=== PATIENT | female | born 1985 | race Caucasian/White ===

== ENCOUNTER → 2020-09-06 | Outpatient (CLI) | payer BC ==
--- NOTE | 2020-09-07 09:01 | MM ---
Reason for exam: screening (asymptomatic). Baseline mammogram. History: Family history of breast cancer in mother and breast cancer in grandmother. Taking hormonal contraceptives for 10 years beginning at age 25. Physical Findings: Nurse did not find any significant physical abnormalities on exam. MG Screening Mammo w CAD Bilateral CC and MLO view(s) were taken. XCCL view(s) were taken of the left breast. Finding: There is an intermediate concern, suspicious 7-8 mm equal density (isodense), oval mass in the 9 o'clock position of the right breast. Asymmetric breast tissue left subareolar. These results were verbally communicated with the patient and result sheet given to the patient on 09/06/20. ASSESSMENT: Incomplete: need additional imaging evaluation, BI-RAD 0 RECOMMENDATION: Special view mammogram of both breasts. Ultrasound of the right breast.
--- NOTE | 2020-09-07 09:03 | MM ---
Reason for exam: additional evaluation requested from abnormal screening. History: Family history of breast cancer in mother and breast cancer in grandmother. Taking hormonal contraceptives for 10 years beginning at age 25. Physical Findings: Breast exam preformed at baseline screening. MG Work Up Mamm w CAD BILAT CC with magnification and ML with magnification view(s) were taken of the right breast. Spot compression CC and spot compression ML view(s) were taken of the left breast. Finding: There are round, diffuse/scattered calcifications in the upper outer quadrant of the right breast consistent with probable adenosis. There is no additional discrete abnormality subareolar region left breast. These results were verbally communicated with the patient and result sheet given to the patient on 09/06/20. ASSESSMENT: Probably benign, BI-RAD 3 RECOMMENDATION: Follow-up diagnostic mammogram of both breasts in 6 months.
--- NOTE | 2020-09-07 09:07 | USB ---
Reason for exam: additional evaluation requested from abnormal screening. History: Family history of breast cancer in mother and breast cancer in grandmother. Taking hormonal contraceptives for 10 years beginning at age 25. US Breast Workup Limited RT Right limited breast ultrasound including focal area of concern, retroareolar and axilla demonstrates a 2.5 x 1.8 x 1.1cm oval, cluster, cystic lesion at 9 o'clock, a 1.1 x 1.3 x 0.5cm oval, cluster, cystic lesion at 9 o'clock and a 0.7 x 1.1 x 0.8cm irregular, lobular, solid, hypoechoic lesion at 11 o'clock for which a biopsy is recommended. These results were verbally communicated with the patient and result sheet given to the patient on 09/06/20. ASSESSMENT: Suspicious, BI-RAD 4 RECOMMENDATION: Ultrasound core biopsy of the right breast. (11 o'clock) Patient did not want to schedule any appointments at this time. Patient will call Dr. Narayan's office to schedule. Called Sylvain's office with mammographic findings. PRELIMINARY REPORT CALLED AND FAXED TO DR. NARAYAN ON 09/07/20.
== END | disposition home or self-care (01) ==
LOC: RADMAMWWP 13:36
PROVIDERS: ATTEND Obstetrics & Gynecology
DX: Z12.31 Encounter for screening mammogram for malignant neoplasm of breast (principal); R92.8 Other abnormal and inconclusive findings on diagnostic imaging of breast; Z80.3 Family history of malignant neoplasm of breast
CPT/HCPCS: 77066; 77067

== ENCOUNTER → 2020-09-20 | Day surgery (SDC) | payer BC ==
[2020-09-20 10:08] VITALS: RESP 18; TEMP 98.5
[2020-09-20 10:37] VITALS: BP 161/91; PULSE 93
--- NOTE | 2020-09-20 11:10 | USB ---
Discontinued ultrasound guided core biopsy of the right breast HISTORY: Density The density at the right 11:00 position was imaged by the technologist as well as the undersigned. No persistent mass or lesion is identified. Abnormality on prior was likely to be secondary to shadowin g from adjacent ligament. This was discussed with the patient. Precautionary six-month follow-up is a dvised. IMPRESSION: Probably benign BI-RADS 3 Recommendation: 6 month follow-up right-sided breast ultrasound
== END ==
LOC: RADUSWWP 09:41
PROVIDERS: ATTEND Surgery
DX: R92.2 Inconclusive mammogram (principal); Z53.09 Procedure and treatment not carried out because of other contraindication

== ENCOUNTER → 2021-03-27 | Outpatient (CLI) | payer BC ==
--- NOTE | 2021-03-27 09:16 | USB ---
EXAMINATION TYPE: US breast limited RT DATE OF EXAM: 03/27/2021 COMPARISON: 09/06/2020, 09/20/2020 CLINICAL HISTORY: R92.8 ABN MAMMO. Findings: The right breast was scanned with ultrasound from 9-12 o'clock and in the retroareolar region and axi lla. Lobulated large septated cyst is redemonstrated and likely accounts for the asymmetry seen on mammogr am at 9:00. In the right breast at 11:00, there is a 1.3 x 0.6 x 0.8 cm irregular hypoechoic mass with indistinct margins which appears relatively similar to the prior ultrasound dated September 06, 2020 and is suspi cious. Ultrasound-guided biopsy is recommended. IMPRESSION: Ultrasound-guided biopsy is recommended for the irregular, hypoechoic mass in the right breast at 11: 00 measuring up to 1.3 cm. BI-RADS 4, suspicious.
== END | disposition home or self-care (01) ==
LOC: RADUSWWP 08:25
PROVIDERS: ATTEND Surgery
DX: N63.11 Unspecified lump in the right breast, upper outer quadrant (principal)

== ENCOUNTER → 2021-04-11 | Day surgery (SDC) | payer BC ==
[2021-04-11 09:52] VITALS: RESP 16
[2021-04-11 11:17] VITALS: BP 135/88; PULSE 89; TEMP 98.6
--- NOTE | 2021-04-11 11:21 | USB ---
EXAMINATION TYPE: US biopsy breast VAD RT, MG diagnostic mammo RT wo CAD DATE OF EXAM: 04/11/2021 CLINICAL HISTORY: N63 BREAST LUMP/MASS. TECHNIQUE: Ultrasound guided core biopsy of right breast. COMPARISON: 09/20/2020 FINDINGS: The procedure of ultrasound guided core biopsy was explained to the patient. Benefits, alternatives, and risks were discussed. An informed consent was then obtained. The patient was placed in supine positioning for imaging and for the procedure. The overlying skin was prepped and draped in usual sterile fashion. Lidocaine buffered with bicarbonate was used as anesthetic into the skin and subcutaneous tissue up to area of concern in the right breast. Skin deirdre was made with surgical scalpel. Under ultrasound guidance, a 12-gauge vacuum assisted biopsy gun device was used to obtain 3 core samples. Following this, a biopsy clip was placed in lesion. The patient tolerated the procedure well without any immediate complication. The patient was kept in the radiology department for short stay after the procedure and then discharged home in stable condition. Post biopsy mammogram shows clip at 11:00 6.5 cm from the nipple. This is in appropriate position. IMPRESSION: Successful, uncomplicated ultrasound guided core biopsy of area of concern in the right breast. Full pathology results to follow. Pathology Results: Benign RIGHT BREAST, ELEVEN O'CLOCK, ULTRASOUND GUIDED CORE BIOPSY: Fibroadenoma/fibroadenomatoid hyperplasia and background fibrocystic changes with rare microcalcifications. Recommendation Follow up mammogram of the right breast in 6 months. SANJAY
== END ==
LOC: RADUSWWP 09:34
PROVIDERS: ATTEND Surgery
DX: D24.1 Benign neoplasm of right breast (principal); N60.11 Diffuse cystic mastopathy of right breast
CPT/HCPCS: 88305; 77065; 19083; A4648; J2001

== ENCOUNTER → 2021-10-23 | Outpatient (CLI) | payer BC ==
--- NOTE | 2021-10-24 10:11 | MM ---
Reason for exam: follow-up at short interval from prior study. Last mammogram was performed 6 months ago. History: Family history of breast cancer in mother and breast cancer in grandmother. Benign US biopsy breast VAD RT of the right breast, April 11, 2021. US discontinued breast bx RT of the right breast, September 20, 2020. Taking hormonal contraceptives for 10 years beginning at age 25. Physical Findings: Nurse did not find any significant physical abnormalities on exam. MG Diagnostic Mammo w CAD CHRIS Bilateral CC and MLO view(s) were taken. Prior study comparison: April 11, 2021, right breast MG diagnostic mammo RT wo CAD. September 06, 2020, bilateral MG work up mamm w CAD BILAT. The breast tissue is heterogeneously dense. This may lower the sensitivity of mammography. There are benign appearing round calcifications bilaterally. Previous mammotome biopsy in the right breast. There is no discrete abnormality. Prominent benign bilateral axillary lymph nodes redemonstrated. These results were verbally communicated with the patient and result sheet given to the patient on 10/23/21. ASSESSMENT: Benign, BI-RAD 2 RECOMMENDATION: Routine screening mammogram of both breasts in 1 year.
--- NOTE | 2021-10-24 10:15 | USB ---
Reason for exam: follow-up at short interval from prior study. History: Family history of breast cancer in mother and breast cancer in grandmother. Benign US biopsy breast VAD RT of the right breast, April 11, 2021. US discontinued breast bx RT of the right breast, September 20, 2020. Taking hormonal contraceptives for 10 years beginning at age 25. US Breast Limited RT Right limited breast ultrasound including focal area of concern, retroareolar and axilla demonstrates a 3.4 x 1.2 x 2.0cm lobular, cystic lesion at 9 o'clock, benign simple cyst stable since 03/27/21, a 1.3 x 0.5 x 1.1cm oval, solid, hypoechoic lesion at 11 o'clock, previously biopsied, fibroadenoma and a 1.2 x 0.6 x 0.9cm lobular, solid, hypoechoic lesion at 12 o'clcok, not seen on 03/27/21. These results were verbally communicated with the patient and result sheet given to the patient on 10/23/21. ASSESSMENT: Suspicious, BI-RAD 4 RECOMMENDATION: Ultrasound core biopsy of the right breast. Called office with mammographic findings and has scheduled an appointment for the patient for 12/13/21 at 11:[address] Vang. Biopsy scheduled for 11/14/21 at 9:30. PRELIMINARY REPORT CALLED AND FAXED TO DR. VANG ON 10/24/21.
== END | disposition home or self-care (01) ==
LOC: RADMAMWWP 12:55
PROVIDERS: ATTEND Surgery
DX: R92.8 Other abnormal and inconclusive findings on diagnostic imaging of breast (principal); Z80.3 Family history of malignant neoplasm of breast
CPT/HCPCS: 77066

== ENCOUNTER → 2021-11-14 | Day surgery (SDC) | payer BC ==
[2021-11-14 11:03] VITALS: BP 140/77; PULSE 78; RESP 16; TEMP 98.1
--- NOTE | 2021-11-14 11:48 | USB ---
EXAMINATION TYPE: US biopsy breast VAD RT, MG diagnostic mammo RT wo CAD DATE OF EXAM: 11/14/2021 CLINICAL HISTORY: R92.8 ABN MAMMO. TECHNIQUE: Ultrasound guided core biopsy of right 12:00 breast. COMPARISON: NONE FINDINGS: The procedure of ultrasound guided core biopsy was explained to the patient. Benefits, alternatives, and risks were discussed. An informed consent was then obtained. The patient was placed in supine positioning for imaging and for the procedure. The overlying skin was prepped and draped in usual sterile fashion. Lidocaine buffered with bicarbonate was used as anesthetic into the skin and subcutaneous tissue up to area of concern in the right 12:00 breast. Under ultrasound guidance, a 12-gauge vacuum assisted biopsy gun device was used to obtain 4 core samples. Following this, a biopsy clip was left in lesion. Postprocedural mammogram demonstrates appropriate clip placement. The patient tolerated the procedure well without any immediate complication. The patient was kept in the radiology department for short stay after the procedure and then discharged home in stable condition. IMPRESSION: Successful, uncomplicated ultrasound guided core biopsy of area of concern in the right 12:00 breast, full pathology results to follow. Pathology Results: Benign RIGHT BREAST, 12:00, ULTRASOUND GUIDED CORE BIOPSY: Fibroadenoma and fibrocystic changes. Recommendation Follow up mammogram of the right breast in 6 months. SANJAY
== END | disposition home or self-care (01) ==
LOC: RADUSWWP 09:28
PROVIDERS: ATTEND Surgery
DX: D24.1 Benign neoplasm of right breast (principal); N60.11 Diffuse cystic mastopathy of right breast
CPT/HCPCS: 88305; 77065; 19083; A4648; J2001

== ENCOUNTER 2022-09-05 06:08 | Inpatient (IN) | payer BC ==
--- NOTE | 2022-09-04 18:37 | P.HPOB ---
History of Present Illness H&P Date: 09/04/22 Chief Complaint: Induction of labor This is a 37 y.o. female, 1, para 0, with an estimated date of confinement of 09/12/2022, estimated gestational age of 39-0/7 weeks, who presents for induction of labor due to chronic hypertension. She has been getting some more labile blood pressures recently with some leg swelling. She denies headaches or blurred vision. labs: Hepatitis B surface antigen-neg RPR-NR Rubella-immune Blood type-A+ Antibody screen-neg HIV-NR Hemoglobin-12.2 Toxoplasma-neg Glucose-84 GC/Chlamydia/Trich-neg Quad-neg [id number] 1 hr. GTT-122 GBS-neg OB Hx: Life Skills Specialist Hx: No hx STDs Social Hx: . Works at [employer] Review of Systems Constitutional: Denies chills, Denies fever Eyes: denies blurred vision, denies pain Ears, nose, mouth and throat: Denies headache, Denies sore throat Cardiovascular: Denies chest pain, Denies shortness of breath Respiratory: Denies cough Gastrointestinal: Reports abdominal pain (irregular contractions) Genitourinary: Reports pelvic pain, Reports Musculoskeletal: Reports low back pain Musculoskeletal: bilateral: foot swelling Integumentary: Denies pruritus, Denies rash Neurological: Denies numbness, Denies weakness Psychiatric: Reports difficulty concentrating, Denies anxiety, Denies depression Past Medical History Past Medical History: No Reported History History of Any Multi-Drug Resistant Organisms: None Reported Past Surgical History: Breast Surgery (Breast biopsy) Additional Past Surgical History / Comment(s): Mole from neck removed as Past Anesthesia/Blood Transfusion Reactions: No Reported Reaction Past Psychological History: No Psychological Hx Reported, ADD/ADHD Smoking Status: Never smoker Past Alcohol Use History: None Reported, Rare Past Drug Use History: None Reported - Past Family History Mother Family Medical History: Hypertension Medications and Allergies Home Medications Medication Instructions Recorded Confirmed Type Multivit with Calcium,Iron,Min 1 each PO DAILY 09/20/20 11/14/21 History [Women's Multivitamin] Allergies Allergy/AdvReac Type Severity Reaction Status Date / Time No Known Allergies Allergy Verified 11/14/21 09:49 Exam Osteopathic Statement: *. No significant issues noted on an osteopathic structural exam other than those noted in the History and Physical/Consult. HEENT: within normal limits Heart: regular rate and rhythm Lungs: clear to auscultation bilaterally Abdomen: gravid, non-tender Cervix: 1 cm/70%/-2 heart tones: 140 by doppler Extremities: neg. Eder's, tr. edema bilaterally Assessment and Plan (1) 39 weeks gestation of Status: Acute Code(s): Z3A.39 - 39 WEEKS GESTATION OF SNOMED Code(s): 16316558 (2) Chronic hypertension affecting Status: Acute Code(s): O10.919 - UNSP PRE-EXISTING HTN COMP , UNSP TRIMESTER SNOMED Code(s): 62095222 Plan: Proceed with oxytocin induction of labor. Expectant management. Epidural anesthesia if desired.
[2022-09-05] MEDS ORDERED: LIDOCAINE 1% (10MG/ML) FOR IV START INTRADERMA PRN (06:24)
[2022-09-05] MEDS ORDERED: CARBOPROST TROMETHAMINE 250 MCG/ML 1 ML AMP IM PRN (06:24)
[2022-09-05] MEDS ORDERED: TERBUTALINE 1 MG/ML VIAL SQ PRN (06:24)
[2022-09-05] MEDS ORDERED: OXYTOCIN 30 UNITS/500 ML NS 30 UNIT in SALINE 1 500ML.BAG IV SCH (06:24)
[2022-09-05] MEDS ORDERED: miSOPROStoL 200 MCG TAB PO PRN (06:24)
[2022-09-05] MEDS ORDERED: OXYTOCIN 10 UNIT/ML 1 ML VIAL IM PRN (06:24)
[2022-09-05] MEDS ORDERED: LIDOCAINE 0.5% (PF) 5 MG/ML (50 ML SDV) SQ PRN (06:24)
[2022-09-05] MEDS ORDERED: TRANEXAMIC ACID IN NACL,ISO-OS 1,000 MG in EMPTY BAG 1 BAG IV PRN (06:24)
[2022-09-05] MEDS: LACTATED RINGERS 1,000 ML IV SCH ×2 (07:14→14:35)
[2022-09-05 07:43] LABS: Basophils % (A) 0 %; Eosinophils # (A) 0.2 k/uL (0-0.7); Eosinophils % (A) 2 %; HCT 31.5 % (34.0-46.0); HGB 10.7 gm/dL (11.4-16.0); Hypochromasia Slight; Lymphocytes # (A) 1.9 k/uL (1.0-4.8); Lymphocytes % (A) 21 %; MCH 28.4 pg (25.0-35.0); MCHC 33.8 g/dL (31.0-37.0); MCV 84.1 fL (80.0-100.0); Mean Platelet Volume 9.6; Monocytes # (A) 0.5 k/uL (0-1.0); Monocytes % (A) 5 %; Neutrophils # (A) 6.3 k/uL (1.3-7.7); Neutrophils % (A) 70 %; Platelet Count 187 k/uL (150-450); RBC 3.75 m/uL (3.80-5.40); RDW 13.6 % (11.5-15.5)
[2022-09-05] MEDS: LABETALOL 200 MG TAB PO SCH ×2 (10:17→21:14)
[2022-09-05 16:35] LABS: Glucose,Urine (UA) Negative (Negative); Ketones,Urine 2+ (Negative); Protein,Urine Trace (Negative)
[2022-09-05] MEDS ORDERED: SODIUM CHLORIDE 0.9% 100 ML BAG ONE (19:32)
[2022-09-05] MEDS ORDERED: ROPIVACAINE 5 MG/ML 20 ML AMPULE ONE (19:32)
[2022-09-05] MEDS ORDERED: fentaNYL (PF) 50 MCG/ML 5 ML AMP ONE (19:32)
[2022-09-06] MEDS ORDERED: AMPICILLIN 2,000 MG in SODIUM CHLORIDE 0.9% 100 ML IVPB ONE (01:00)
[2022-09-06] MEDS: LACTATED RINGERS 1,000 ML IV SCH ×3 (01:00→20:53)
[2022-09-06] MEDS ORDERED: LABETALOL 200 MG TAB PO STA (03:17)
[2022-09-06] MEDS ORDERED: CITRIC ACID-SODIUM CITRATE 15 ML CUP PO ONE (04:58)
[2022-09-06] MEDS ORDERED: AMPICILLIN 1,000 MG in SODIUM CHLORIDE 0.9% 50 ML IVPB SCH (05:00)
[2022-09-06] MEDS ORDERED: OXYTOCIN 30 UNITS/500 ML NS BAG IV ONE (05:20)
[2022-09-06] MEDS ORDERED: KETOROLAC 15 MG/ML 1 ML VIAL ONE (05:20)
[2022-09-06] MEDS ORDERED: ONDANSETRON 4 MG/2 ML VIAL ONE (05:20)
[2022-09-06] MEDS ORDERED: MORPHINE SULFATE (PF) 0.3 MG/0.3 ML SYR ONE (05:20)
[2022-09-06] MEDS ORDERED: NALBUPHINE 10 MG/ML (1 ML AMP) ONE (05:20)
--- NOTE | 2022-09-06 06:09 | P.OP ---
Date of Procedure: 09/06/22 Preoperative Diagnosis: 1. Intrauterine at 39 and one sevenths weeks. 2. Failure to descend. 3. Chronic hypertension. Postoperative Diagnosis: Same Procedure(s) Performed: Primary low transverse section Anesthesia: epidural (Duramorph) Surgeon: Marcie Narayan Drop Board Man #1: Diony Timmons Estimated Blood Loss (ml): 550 Pathology: other (Placenta) Condition: stable Disposition: floor Indications for Procedure: This is a 37-year-old female 1 para 0 at 39 and one sevenths weeks who presented for induction of labor. She underwent oxytocin induction of labor due to chronic hypertension and progressed over about a 24 hour period of time to complete dilation. She did receive epidural anesthesia. Once reaching complete she pushed for approximately an hour and a half almost no descent of the baby's head and increasing caput. At this point the decision was made to proceed with delivery. Risks benefits and alternatives were discussed in detail with the patient and her family and the decision was mutual to proceed with delivery. I have discussed the risks, benefits, and alternative therapies for the above- mentioned procedure and for both sedation/anesthesia as well as necessary blood products administration, if indicated, as they pertain to this patient. The patient has indicated her understanding and acceptance of the risks and procedures discussed. Operative Findings: A viable female is noted in the vertex presentation with occiput anterior lie and scores of 3 at 1 minute 5 at 5 minutes and 9 at 10 minutes and infant weight of 8 lbs. 0 oz. Normal uterus tubes and ovaries are noted. She did have a small anterior fibroid noted. Description of Procedure: The patient is taken to the operating room where she is placed in the dorsal supine position with leftward tilt after epidural anesthesia is bolused. She is prepped and draped in the normal sterile fashion. Skin was tested and found to be adequately anesthetized. A Pfannenstiel skin incision was made with a scalpel. A second knife was used to carry the incision down to the underlying layer of fascia. The fascia was nicked in the midline with a scalpel and then extended laterally bilaterally with Varela scissors. The anterior lip of the fascia was grasped with 2 Heather clamps and then dissected off the underlying rectus muscle in the midline with Varela scissors. The inferior aspect of the fascial incision was grasped with 2 Heather clamps and dissected off the underlying rectus muscle and the midline with Varela scissors. Next the peritoneum layer was tented up with 2 hemostats and then entered sharply with the scalpel. The incision is extended superiorly and inferiorly with Metzenbaum scissors. Next a DeLee retractor is placed. The vesicouterine peritoneum is entered sharply with Metzenbaum scissors and extended laterally bilaterally with Metzenbaum scissors and then the bladder flap is pushed inferiorly. The lower uterine segment is incised in transverse fashion with the scalpel and then bluntly entered with a hemostat. Clear fluid is noted. The incision was then extended laterally bilaterally with 2 fingers. Next the 's head is noted in the occiput anterior lie and is delivered through the incision. Nose and mouth are bulb suctioned. The remainder of the is easily delivered and placed on mother's abdomen. Cord is clamped and cut. Infant is taken to warmer by nursing staff. Uterine fundus is gently massaged and placenta is delivered manually. Uterus is exteriorized and cleared of all clots and debris. Uterine incision is closed with 0 Vicryl suture in a running locked fashion. A second layer of 0 Vicryl suture is used in a running fashion for hemostasis. Once adequate hemostasis as assured, the vesicouterine peritoneum is reapproximated with 2-0 Vicryl suture in a running fashion. Posterior cul-de-sac is suctioned of all clots and debris. Uterus is returned to the abdomen. Incision is noted to be hemostatic. Peritoneal layer is closed with 0 Vicryl suture in a running fashion. Muscle layer is reapproximated with 0 Vicryl suture in interrupted fashion. Fascia layer is then closed with 0 PDS suture with 2 sutures meeting in the midline and the knots buried in either side and in the midline. The subcutaneous tissue was then closed with 2-0 Vicryl suture. Skin layer was then closed with gracie. All sponge and needle counts are correct. The patient is taken to recovery room in stable condition.
[2022-09-06] MEDS ORDERED: METOCLOPRAMIDE 5 MG/ML 2 ML VIAL IVP PRN (06:24)
[2022-09-06] MEDS ORDERED: LANOLIN CREAM 5 GM TUBE TOPICAL PRN (06:24)
[2022-09-06] MEDS ORDERED: diphenhydrAMINE 25 MG CAP PO PRN (06:24)
[2022-09-06] MEDS ORDERED: SIMETHICONE 80 MG CHEWABLE PO PRN (06:24)
[2022-09-06] MEDS ORDERED: ONDANSETRON 4 MG/2 ML VIAL IVP PRN (06:24)
[2022-09-06] MEDS ORDERED: HYDROmorphone PCA 10 MG/50 ML BAG IV PRN (06:24)
[2022-09-06] MEDS ORDERED: NALOXONE 0.4 MG/ML 1 ML VIAL IV PRN (06:24)
[2022-09-06] MEDS ORDERED: ZOLPIDEM 5 MG TAB PO PRN (06:24)
[2022-09-06] MEDS ORDERED: diphenhydrAMINE 50 MG/ML 1 ML VIAL IVP PRN ×2 (06:24)
[2022-09-06] MEDS ORDERED: diphenhydrAMINE 50 MG CAP PO PRN (06:24)
[2022-09-06] MEDS: ACETAMINOPHEN TAB 500 MG TAB PO SCH ×2 (09:47→17:01)
[2022-09-06] MEDS: SENNOSIDES-DOCUSATE SODIUM 1 EACH TAB PO SCH ×2 (09:47→20:21)
[2022-09-06] MEDS: LABETALOL 200 MG TAB PO SCH ×2 (10:36→21:01)
[2022-09-06] MEDS: KETOROLAC 15 MG/ML 1 ML VIAL IVP SCH ×2 (11:45→20:21)
[2022-09-06] MEDS: ACETAMINOPHEN IV (For NPO) 1,000 MG in EMPTY BAG 1 BAG IVPB SCH (19:44)
[2022-09-06] MEDS: IBUPROFEN 600 MG TAB PO SCH (20:51)
[2022-09-07] MEDS: ACETAMINOPHEN TAB 500 MG TAB PO SCH ×5 (00:11→21:00)
[2022-09-07] MEDS: LACTATED RINGERS 1,000 ML IV SCH (00:31)
[2022-09-07] MEDS: KETOROLAC 15 MG/ML 1 ML VIAL IVP SCH ×3 (04:13→23:06)
[2022-09-07] MEDS: IBUPROFEN 600 MG TAB PO SCH ×4 (04:19→16:58)
[2022-09-07 06:48] LABS: Basophils % (A) 0 %; Eosinophils # (A) 0.2 k/uL (0-0.7); Eosinophils % (A) 2 %; HCT 29.6 % (34.0-46.0); HGB 9.5 gm/dL (11.4-16.0); Hypochromasia Slight; Lymphocytes # (A) 1.9 k/uL (1.0-4.8); Lymphocytes % (A) 17 %; MCH 27.2 pg (25.0-35.0); MCV 85.1 fL (80.0-100.0); Mean Platelet Volume 9.5; Monocytes # (A) 0.7 k/uL (0-1.0); Monocytes % (A) 7 %; Neutrophils # (A) 7.9 k/uL (1.3-7.7); Neutrophils % (A) 73 %; Platelet Count 167 k/uL (150-450); RBC 3.48 m/uL (3.80-5.40); RDW 13.6 % (11.5-15.5); WBC 10.9 k/uL (3.8-10.6)
--- NOTE | 2022-09-07 07:09 | P.PNOBGPC ---
Subjective - Subjective Patient reports: Reports appetite normal, Reports voiding normally, Reports pain well controlled, Reports ambulating normally : doing well Objective - Vital Signs Latest vital signs: Vital Signs Temp Pulse Resp BP Pulse Ox 09/07/22 04:00 97.7 F 80 14 144/92 96 09/07/22 00:00 97.8 F 72 15 134/85 97 09/06/22 20:00 98.7 F 76 16 127/78 96 09/06/22 16:00 97.9 F 81 16 135/85 97 09/06/22 12:00 98.0 F 78 16 148/82 97 09/06/22 08:05 78 16 162/82 98 09/06/22 07:35 88 16 155/70 Intake and Output 09/06/22 09/07/22 09/07/22 22:59 06:59 14:59 Output Total 100 Balance -100 Output: Urine 100 Other: # Voids 1 1 - Exam Lungs: bilateral: normal Chest: Normal S1, Normal S2 Extremities: Present: normal Abdomen: Present: normal appearance, soft. Absent: distention, tenderness Incision: Present: normal, dry, intact Uterus: Present: normal, firm - Labs Labs: Abnormal Lab Results - Last 24 Hours (Table) 09/07/22 Range/Units 06:26 WBC 10.9 H (3.8-10.6) k/uL RBC 3.48 L (3.80-5.40) m/uL Hgb 9.5 L (11.4-16.0) gm/dL Hct 29.6 L (34.0-46.0) % Neutrophils # 7.9 H (1.3-7.7) k/uL Assessment and Plan Assessment: Post operative day #1. Patient is resting without complaints. Vital signs are stable she's afebrile. Blood pressures remain around 130s over 80s to 140s over 90s on oral antihypertensives. Uterus is firm nontender and her incision is intact and dry. Patient is urinating and ambulating without difficulty. Patient states that she is also tolerating regular diet. CBC today does show hemoglobin to be 9.5 which is an appropriate drop from her preoperative hemoglobin however I am going start her on some oral iron therapy. Baby is still in special care but appears to be weaning off of high flow. Plan today is to allow the patient to shower, encourage ambulation, instituting oral iron therapy, and continue routine postoperative care (1) delivery delivered Current Visit: Yes Status: Acute Code(s): O82 - ENCOUNTER FOR DELIVERY WITHOUT INDICATION SNOMED Code(s): 030380504
[2022-09-07] MEDS: FERROUS SULFATE 325 MG TAB PO SCH ×2 (07:46→16:58)
[2022-09-07] MEDS: SENNOSIDES-DOCUSATE SODIUM 1 EACH TAB PO SCH ×2 (07:46→20:37)
[2022-09-07] MEDS: LABETALOL 200 MG TAB PO SCH ×2 (09:37→21:00)
--- NOTE | 2022-09-07 14:56 | P.PN ---
Progress Note - Text Progress Note Date: 09/07/22 Patient doing well. Pain controlled. Denies headache. Ambulating w/o weakness or paresthesia. Mild pruritis. Back - spinal site c/d A/P POD#1 s/p w/ spinal duramorph - doing well
[2022-09-08] MEDS: IBUPROFEN 600 MG TAB PO SCH ×4 (04:20→21:04)
[2022-09-08] MEDS: FERROUS SULFATE 325 MG TAB PO SCH ×2 (07:32→16:57)
--- NOTE | 2022-09-08 07:33 | P.PNOBGPC ---
Subjective - Subjective Patient reports: Reports appetite normal, Reports voiding normally, Reports pain well controlled, Reports ambulating normally : doing well Objective - Vital Signs Latest vital signs: Vital Signs Temp Pulse Resp BP Pulse Ox 09/08/22 07:25 97.8 F 87 20 151/98 99 09/08/22 04:00 98.1 F 78 16 159/98 97 09/07/22 23:49 98.1 F 75 19 131/82 97 09/07/22 20:00 98.1 F 85 19 147/88 99 09/07/22 16:00 97.9 F 83 16 118/72 98 09/07/22 12:00 98.0 F 68 18 114/64 98 09/07/22 07:50 98.1 F 83 18 146/86 99 Intake and Output 09/07/22 09/08/22 09/08/22 22:59 06:59 14:59 Intake Total 480 Balance 480 Intake: Oral 480 Other: Voiding Method Indwelling Catheter # Voids 3 1 2 - Exam Lungs: bilateral: normal Chest: Normal S1, Normal S2 Extremities: Present: normal Abdomen: Present: normal appearance, soft. Absent: distention, tenderness Incision: Present: normal, dry, intact Uterus: Present: normal, firm Assessment and Plan Assessment: Postoperative day #2. Patient is resting without new complaints. Yesterday her blood pressures are 130-140 over 80s, however since earlier this morning her blood pressures are 159/98 and 151/98. For this reason I'm going to increase her labetalol to 300 mg by mouth twice a day. Her incision is intact and dry. Patient is tolerating regular diet and ambulating and urinating without difficulty. Plan today is to continue routine postoperative care, monitor her blood pressure closely, and continue inpatient hospitalization. (1) delivery delivered Current Visit: Yes Status: Acute Code(s): O82 - ENCOUNTER FOR DELIVERY WITHOUT INDICATION SNOMED Code(s): 890857397 (2) Chronic hypertension affecting Current Visit: No Status: Acute Code(s): O10.919 - UNSP PRE-EXISTING HTN COMP , UNSP TRIMESTER SNOMED Code(s): 96621150
[2022-09-08] MEDS: SENNOSIDES-DOCUSATE SODIUM 1 EACH TAB PO SCH ×2 (08:07→21:06)
[2022-09-08] MEDS: LABETALOL 100 MG TAB PO SCH ×2 (09:33→21:04)
[2022-09-08] MEDS: ACETAMINOPHEN TAB 500 MG TAB PO SCH ×2 (09:35→16:57)
[2022-09-08] MEDS ORDERED: NIFEdipine XL 30 MG TAB.ER.24 PO SCH (22:15)
[2022-09-09] MEDS: ACETAMINOPHEN TAB 500 MG TAB PO SCH ×4 (00:05→08:07)
[2022-09-09] MEDS: IBUPROFEN 600 MG TAB PO SCH ×3 (04:55→15:13)
[2022-09-09] MEDS: LACTATED RINGERS 1,000 ML IV SCH (07:18)
[2022-09-09] MEDS: SENNOSIDES-DOCUSATE SODIUM 1 EACH TAB PO SCH (08:06)
[2022-09-09] MEDS: LABETALOL 100 MG TAB PO SCH (08:07)
[2022-09-09] MEDS: FERROUS SULFATE 325 MG TAB PO SCH (08:07)
[2022-09-09 08:21] VITALS: TEMP 98.1
[2022-09-09 12:02] VITALS: BP 131/84; PULSE 80; RESP 14
--- NOTE | 2022-09-09 13:15 | P.DS ---
Providers Date of admission: 09/05/22 06:08 Expected date of discharge: 09/09/22 Attending physician: Marcie Narayan Primary care physician: Stated None - Discharge Diagnosis(es) (1) 39 weeks gestation of Current Visit: No Status: Acute (2) Chronic hypertension affecting Current Visit: No Status: Acute Hospital Course: This is a 37-year-old female 1 para 0 at 39 and one sevenths weeks who presented for induction of labor due to chronic hypertension. She underwent oxytocin induction of labor and reached complete dilation and pushed for over an hour with little descent of the infant's head. At this point she underwent a primary section on 09/06/2022 and delivered a viable female infant with scores of 3 at 1 minute and 5 at 5 minutes and 9 at 10 minutes and weight of 8 lbs. 0 oz. Her postoperative course was initially essentially uncomplicated but then she began having increases in her blood pressures yesterday. She was increased to 300 mg twice a day on her labetalol and then also she had Procardia XL added last night. Her blood pressures this morning have improved. Her pain is fairly well controlled at this time. She is passing flatus and bowel movement and she is urinating without difficulty. She has been working on pumping her breast milk. Vital signs are stable. Abdomen is soft with fundus firm and nontender. Incision is clean dry and intact with gracie in place. Extremities show negative Homans. Impression is status post primary low transverse section postoperative day #3. Plan is to discharge home today. Routine post operative and instructions are given. She is advised follow-up in the office in 1 week for a postoperative check and in 6 weeks for check. Sandy will be removed and Steri-Strips placed prior to discharge. She will be given a prescription for ibuprofen and will add Procardia XL 30 mg daily to the labetalol 300 mg twice a day. She is instructed to check her blood pressure at home at least once a day. She is advised to call if her blood pressures are extremely high or are extremely low. She will be given a prescription for a breast pump. Procedures: Oxytocin induction of labor Primary low transverse section for delivery of a viable female on 09/06/2022 Patient Condition at Discharge: Stable Plan - Discharge Summary New Discharge Prescriptions: New NIFEdipine XL [Procardia XL] 30 mg PO DAILY #30 tab Continue Multivit with Calcium,Iron,Min [Women's Multivitamin] 1 each PO DAILY Changed Labetalol [Trandate] 300 mg PO BID #60 Discontinued Aspirin 81 mg PO DAILY Discharge Medication List Multivit with Calcium,Iron,Min [Women's Multivitamin] 1 each PO DAILY 09/20/20 [History] Labetalol [Trandate] 300 mg PO BID #60 09/09/22 [Rx] NIFEdipine XL [Procardia XL] 30 mg PO DAILY #30 tab 09/09/22 [Rx] Follow up Appointment(s)/Referral(s): Marcie Narayan DO [Doctor of Osteopathic Medicine] - 10/14/22 11:30 am (Post Op Appointment 09-16-22 at 1:30) Activity/Diet/Wound Care/Special Instructions: Instructions 1. Do not begin any exercise program for 3 weeks. 2. Do not resume sexual relations for 3 weeks or longer if uncomfortable. 3. You may take tub baths or showers at any time. 4. You may use tampons if desired after 3 weeks. 5. Keep the area of episiotomy (stitches) clean and dry. 6. If you are not nursing, wear a good fitting, supportive bra during the day and limit fluid intake for at least 1 week to prevent breast engorgement. 7. Call the office, [phone], within the next week to make appointment for your 6 week checkup if it has not already been made. 8. Report any of the following occurrences to the doctor promptly: a. Heavy, excessive bleeding b. Chills, fever c. Burning or frequency of urination d. Pain or redness and breasts if nursing e. Increasing pain or swelling in episiotomy (stitches). In addition to the above instructions, the following additional should be followed: 1. No heavy lifting or straining (exercising) until after 6 week checkup. 2. Keep abdominal incision clean and dry: You may wear a dressing if more comfortable. 3. Make office appointment for 10 days after going home or as instructed by her doctor. Discharge Disposition: HOME SELF-CARE
== END 2022-09-09 15:45 | disposition home or self-care (01) | DRG 788 ==
LOC: 4FBP 06:08
PROVIDERS: ADMIT Obstetrics & Gynecology; ATTEND Obstetrics & Gynecology
PROC: 3E033VJ Introduction of Other Hormone into Peripheral Vein, Percutaneous Approach (ICD-10-PCS; principal; 2022-09-06 05:20)
PROC: 10D00Z1 Extraction of Products of Conception, Low, Open Approach (ICD-10-PCS; principal; 2022-09-06 05:20)
DX: O10.92 Unspecified pre-existing hypertension complicating childbirth (principal); O62.1 Secondary uterine inertia; O99.73 Diseases of the skin and subcutaneous tissue complicating the puerperium; L29.9 Pruritus, unspecified; O34.13 Maternal care for benign tumor of corpus uteri, third trimester; D25.9 Leiomyoma of uterus, unspecified; Z79.899 Other long term (current) drug therapy; Z3A.39 39 weeks gestation of pregnancy; Z37.0 Single live birth
CPT/HCPCS: 81003; 85025; 86850; 86900; 86901

== ENCOUNTER → 2023-02-03 | Outpatient (CLI) | payer BC ==
--- NOTE | 2023-02-03 15:21 | MM ---
Reason for Exam: Follow-up at short interval from prior study. Last mammogram was performed 1 year(s) and 4 month(s) ago. Patient History: Menarche at age 12. First Full-Term at age 37. Late child-bearing (after 30). Patient has history of breast feeding. Currently using Hormonal Contraceptives, beginning at age 25 for 10 years. 11/14/2021, Benign Core Biopsy on the right side. 04/11/2021, Benign Core Biopsy on the right side. 09/20/2020, US discontinued breast bx RT on the right side. Maternal grandmother had breast cancer. Mother had breast cancer. Risk Values: Myla 5 year model risk: 2.2%. NCI Lifetime model risk: 30.3%. Prior Study Comparison: 04/11/2021 Right Diagnostic Mammogram, [facility]. 10/23/2021 Bilateral Diagnostic Mammogram, [facility]. 11/14/2021 Right Diagnostic Mammogram, [facility]. Tissue Density: The breast tissue is heterogeneously dense. This may lower the sensitivity of mammography. Findings: Analyzed By CAD. There are 2 biopsy clips in the right breast redemonstrated. There are loosely grouped benign-appearing punctate calcifications near the outer biopsy clip redemonstrated. A few loosely grouped benign-appearing tiny round calcifications anteriorly in the left breast are redemonstrated. Benign-appearing right axillary lymph nodes are again seen. No suspicious new mass or distortion in either breast. Overall Assessment: Benign, BI-RAD 2 Management: Screening Mammogram of both breasts in 1 year. . Results were given to the patient verbally at the time of exam. Patient should continue monthly self-breast exams. A clinical breast exam by your physician is recommended on an annual basis. This exam should not preclude additional follow-up of suspicious palpable abnormalities. Note on Myla scores and lifetime risk: 1. A Myla score greater than 3% is considered moderate risk. If this is the case, consider specialist referral to assess eligibility for a risk reducing agent. 2. If overall lifetime risk for the development of breast cancer is 20% or higher, the patient may qualify for future screening with alternating mammogram and breast MRI. Electronically signed and approved by: Joon Momin M.D.
== END | disposition home or self-care (01) ==
LOC: RADMAMWWP 14:58
PROVIDERS: ATTEND Family Medicine
DX: R92.8 Other abnormal and inconclusive findings on diagnostic imaging of breast (principal); Z80.3 Family history of malignant neoplasm of breast
CPT/HCPCS: 77066

== ENCOUNTER → 2025-01-05 | Outpatient (CLI) | payer BC ==
--- NOTE | 2025-01-06 13:52 | MM ---
Reason for Exam: Screening (asymptomatic). Last mammogram was performed 1 year(s) and 11 month(s) ago. Patient History: Menarche at age 12. First Full-Term at age 37. Late child-bearing (after 30). Patient has history of breast feeding. Currently using Hormonal Contraceptives, beginning at age 25 for 10 years. 11/14/2021, Benign Core Biopsy on the right side. 04/11/2021, Benign Core Biopsy on the right side. 09/20/2020, US discontinued breast bx RT on the right side. Maternal grandmother had breast cancer. Mother had breast cancer. Last menstrual period: 12/13/2024 Risk Values: Myla 5 year model risk: 2.7%. NCI Lifetime model risk: 29.9%. Prior Study Comparison: 10/23/2021 Bilateral Diagnostic Mammogram, [facility]. 11/14/2021 Right Diagnostic Mammogram, [facility]. 02/03/2023 Bilateral MG diagnostic mammo w CAD [facility], [facility]. Tissue Density: The breasts are heterogeneously dense, which may obscure small masses. Findings: Analyzed By CAD. There is no suspicious group of microcalcifications or new suspicious mass in either breast. Overall Assessment: Benign, BI-RAD 2 Management: Screening Mammogram of both breasts in 1 year. . Patient should continue monthly self-breast exams. A clinical breast exam by your physician is recommended on an annual basis. This exam should not preclude additional follow-up of suspicious palpable abnormalities. Note on Myla scores and lifetime risk: 1. A Myla score greater than 3% is considered moderate risk. If this is the case, consider specialist referral to assess eligibility for a risk reducing agent. 2. If overall lifetime risk for the development of breast cancer is 20% or higher, the patient may qualify for future screening with alternating mammogram and breast MRI. [facility], , 01/05/2025 3:28 PM. Electronically signed and approved by: Mega Salomon M.D. [facility]
== END | disposition home or self-care (01) ==
LOC: RADMAMWWP 15:10
PROVIDERS: ATTEND Family Medicine
DX: Z12.31 Encounter for screening mammogram for malignant neoplasm of breast (principal); R92.333 Mammographic heterogeneous density, bilateral breasts; Z80.3 Family history of malignant neoplasm of breast; Z79.3 Long term (current) use of hormonal contraceptives
CPT/HCPCS: 77067